=== PATIENT | male | born 1995 | race Caucasian/White ===

== ENCOUNTER 2020-07-18 22:52 | Emergency (ER) | payer SELFPAY ==
[~2020-07-18] VITALS: Ht 165.1 cm; Wt 70.8 kg
[2020-07-18 23:11] VITALS: BP 144/74
--- NOTE | 2020-07-18 23:15 | NUR ---
PT AMBULATED TO BED 11 WITH STEADY GAIT.
--- NOTE | 2020-07-18 23:30 | NUR ---
PT BIB SELF FOR C/O 8/10 L MIDDLE FINGER PAIN X 1 DAY. PT DENIES INJURY BUT STATES PAIN BEGAN WHILE WORKING TODAY. VSS. RADIAL PULSES +2. CMS INTACT ON BUE AND BLE. +SWELLING ON LEFT HAND. CAP REFILL < 3. A&O X4. STEADY GAIT. NKDA. PMH: DENIES
[2020-07-18] MEDS: IBUPROFEN 600 MG TAB PO ONE (23:34)
--- NOTE | 2020-07-18 23:43 | NUR ---
XR AT BEDSIDE.
--- NOTE | 2020-07-19 00:56 | NUR ---
Dr. Barragan examining patient.
--- NOTE | 2020-07-19 01:10 | NUR ---
TDAP VACCINE CONSENT FORM SIGNED BY PT. TDAP ADMINISTERED AT THIS TIME.
[2020-07-19 01:12] VITALS: BP 144/74
--- NOTE | 2020-07-19 01:12 | NUR ---
Patient discharged with v/s stable. Written and verbal after care instructions given and explained. Patient alert, oriented and verbalized understanding of instructions. Ambulatory with steady gait. All questions addressed prior to discharge. ID band removed. Patient advised to follow up with PMD. Rx of AUGMENTIN, AND MOTRIN given. Patient educated on indication of medication including possible reaction and side effects. Opportunity to ask questions provided and answered.
== END 2020-07-19 01:12 | disposition home or self-care (01) ==
LOC: MED 22:52
DX: M79.645 Pain in left finger(s) (principal)
CPT/HCPCS: 73130; 90715; 99283; Q0092